=== PATIENT | male | born 1970 | race Caucasian/White ===

== ENCOUNTER → 2018-06-12 | Outpatient (CLI) | payer OTHER ==
[~2018-06-12] VITALS: Ht 177.8 cm; Wt 111.1 kg
[~2018-06-12] MED LIST: CEFUROXIME500 MG PO
--- NOTE | ~2018-06-12 | HPC ---
[facility] [address] [place] [address] PAIN MANAGEMENT CONSULTATION Name: PTATIE GAFFNEY Room #: REG OLIVIA CoatesMagen#: [id number] Admission: 06/12/18 Attend Phys: Christiano Nix MD Discharge: Date of : 72 Report #: [id number] THIS REPORT FOR: //name// CC: Noah Nix DATE OF SERVICE: 06/12/2018 CHIEF COMPLAINT: Chronic low back pain with radiation into the left posterior lateral aspect of the leg. The patient is a really nice 47-year-old gentleman. He has been dealing with back pain for about 3 years. He really pursued no treatment to this point. When he first noticed, it was intermittent. It has become a bit more common place and constant. He mentioned it to Dr. Mcwilliams, who recommended an MRI, which demonstrated an L5-S1 disk protrusion that correlated well with his radicular symptoms into the leg. For that reason, he was sent to us to discuss treatment options. He reports that he had back pain 8 or 12 years ago associated with back spasms, but no leg pain. It would come and go sometimes so bad that it would put him down, but it was never bad enough to seek treatment. The current pain in the left leg is intermittent, but tends to follow the same pattern, would be consistent with an intermittent radicular pain syndrome. He appears fit. He scores his pain as a 4-5/10. He has lost 45 pounds over the course of the last 6-9 months by working out at a gym boxing and also exercising regularly on his Peloton. These 2 forms of exercises have done him great job and although he is a stocky mikaela, he looks fit at this time. MEDICATIONS: None. ALLERGIES: None. PAST MEDICAL HISTORY: Hernia repair in 01/2016, septoplasty 05/2018. SOCIAL HISTORY: Denies tobacco. He drinks alcohol perhaps 1-2 in a month. He does not regularly use alcohol. 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 Impact pain score is a low 18. His pain is affecting his sleep at a level of 6/10 and walking at 3/10. Maximum score is 70. He is [id number] [id number] PAIN MANAGEMENT CONSULTATION Name: PATTIE GAFFNEY Room #: REG OLIVIA FlorezWade#: [id number] Admission: 06/12/18 Attend Phys: Christiano Nix MD Discharge: Date of : 72 Report #: [id number] REVIEW OF SYSTEMS: Essentially negative other than reported history of kidney stones. PHYSICAL EXAMINATION: GENERAL: Pleasant gentleman again stocky in appearance, but he appears fit. VITAL SIGNS: His blood pressure is 132/72, heart rate 71, respirations 16. He is 5 feet 10 inches, 245 pounds. BMI is now 35.2. CHEST: Clear. CARDIAC: Rhythm is regular. No audible murmur. ABDOMEN: Soft. MUSCULOSKELETAL: Examination of the spine reveals no tenderness. Good range of motion. Straight leg raising is performed in the sitting position and in the supine with mild radicular symptoms noted outside of the leg. Sensation is intact. Strength is normal. EXTREMITIES: Ankle jerk reflex on the left is perhaps slightly down in comparison to the right, knee is normal, 2+ bilateral. IMPRESSION: Low back pain with radiculopathy. Pain tends to follow primarily in L5 distribution. There may be some S1 component as well. The decrease in his ankle jerk reflex would correlate with an S1 radiculopathy. I reviewed the MRI with him and discussed an epidural injection. We would do it today; however, his insurance requires a preauthorization. Preauthorization will be sought. We will perform the injection at next available appointment. Risks, benefits were reviewed as well as long-term plan. See him back in 1 week. By: [id number] Christiano Nix MD /nt
[2018-06-12 13:52] VITALS: BP 132/72
== END | disposition home or self-care (01) ==
LOC: PAIN 08:16
DX: G89.29 Other chronic pain (principal); M51.27 Other intervertebral disc displacement, lumbosacral region; Z98.890 Other specified postprocedural states; Z87.442 Personal history of urinary calculi; Z79.899 Other long term (current) drug therapy

== ENCOUNTER → 2018-06-29 | Outpatient (CLI) | payer OTHER ==
[~2018-06-29] VITALS: Ht 177.8 cm; Wt 115.3 kg
--- NOTE | ~2018-06-29 | HPC ---
[facility] [place] [address] PAIN MANAGEMENT CONSULTATION Name: PATTIE GAFFNEY Room #: REG OLIVIA Gautam.#: [id number] Admission: 06/29/18 Attend Phys: Christiano Nix MD Discharge: Date of : 72 Report #: [id number] THIS REPORT FOR: //name// CC: Noah Nix DATE OF SERVICE: 06/29/2018 Followup visit for lumbar radiculopathy. I saw the patient on 06/12. He was scheduled for an epidural after we received preauthorization from his insurance company. That has been obtained and he is now here today for the injection discussed thoroughly at his last visit. I reviewed the procedure, risks and benefits. I reviewed his MRI scan, which demonstrates an L5-S1 disk protrusion correlating well with his L5-S1 symptoms on the left. Potential risks and benefits of the injection were described and he is anxious to proceed with the injection. IMPRESSION: Chronic low back pain with radiculopathy on the left in the L5-S1 distribution. PROCEDURE: Epidural steroid injection, left paramedian L5-S1. He was taken to the fluoroscopy suite and placed prone. Skin prepped with ChloraPrep. Skin anesthetized over the L5-S1 interspace. A 25-gauge needle was advanced easily into the epidural space in the first attempt using loss of resistance. There was no blood or CSF aspirated. 1 mL of Omnipaque injected demonstrating good spread of dye into the epidural space followed by 3 mL of 0.5% lidocaine mixed with 80 mg of triamcinolone. He tolerated the procedure well. He was observed for 45 minutes and was discharged. Follow up as needed. By: [id number] Christiano Nix MD /nt
[2018-06-29 14:26] VITALS: BP 118/83
== END | disposition home or self-care (01) ==
LOC: PAIN 07:17
DX: M54.16 Radiculopathy, lumbar region (principal); G89.29 Other chronic pain

== ENCOUNTER → 2019-01-01 | Outpatient (CLI) | payer OTHER ==
[~2019-01-01] VITALS: Ht 177.8 cm; Wt 121.1 kg
[~2019-01-01] MED LIST changes: +MOBIC15 MG PO
--- NOTE | ~2019-01-01 | HPC ---
[facility] [address] [place] [address] PAIN MANAGEMENT CONSULTATION Name: PATTIE GAFFNEY Room #: REG OLIVIA Florez.#: [id number] Admission: 01/01/19 ������������������ Attend Phys: Christiano Nix MD Discharge: ������������������ Date of : 72 Report #: [id number] THIS REPORT FOR: //name// CC: NIKHIL Nix DATE OF SERVICE: 01/01/2019 Followup visit for lumbar radiculopathy. The patient had an epidural last in July. He had great relief from that second shot. The first was in June. Pain was sustained over many months and is now returning. It is similar in nature in his low back and it radiates into his left leg. Pain goes as far as his knee. It has been ongoing since about 2014. Epidurals provided to the clinic to provide the best relief. Pain is still significant when he is riding or sitting for a long period of time. He can stand and walk without too much difficulty. Sneezing causes increased pressure throughout the lumbar spine and increases the radicular pain as well. MEDICATIONS: Meloxicam 50 mg daily. We discussed side effects of nonsteroidal anti-inflammatory drugs. PHYSICAL EXAMINATION: Blood pressure is 114/60, heart rate 67. He is 5 feet 10 inches, 267 pounds, BMI of 38.3. Contribution of weight to pain was discussed. He has pain across his low back and straight leg raising discomfort, which follows an L5-S1 distribution. X-rays reviewed. There is moderate left and [id number] right neural foraminal stenosis at L5-S1. Radiologist suggests this correlates with L5 radiculopathy and it is exactly what he has. RECOMMENDATION: Repeat epidural injection today, to continue with ongoing regular exercise. He is boxing 5 days a week. He remains very active and we talked about continuing to remain active both for weight management and also for core strengthening. PROCEDURE: We received preauthorization from his insurance company. He was taken to fluoroscopic suite after signing an informed consent. He was placed in prone position. Skin was prepped with ChloraPrep. Skin anesthetized over the L5-S1 interspace. A 20-gauge Tuohy epidural needle advanced on the left side of the epidural space using loss of resistance technique. There was no blood and [address] [address] PAIN MANAGEMENT CONSULTATION Name: PATTIE MAYER Room #: REG [facility] Gautam.#: [id number] Admission: 01/01/19 ������������������ Attend Phys: Christiano Nix MD Discharge: ������������������ Date of : 72 Report #: [id number] no CSF aspirated. A 1 mL of Omnipaque injected. Good spread of dye observed in the epidural space followed by 3 mL of 0.5% lidocaine mixed with 80 mg of triamcinolone. He tolerated the procedure well and was observed for 45 minutes and discharged. Followup visit is planned as needed for epidural injections in the future. No medications were ordered. ��������������������������������������������� ���������������������������������������� By: ��������������������������������������������� [id number] Christiano Nix MD /zenaida
[2019-01-01 14:08] VITALS: BP 114/60
--- NOTE | 2019-01-01 14:19 | NUR ---
Pain Clinic Assessment: 1. History of Osteoarthritis: DENIES History of Rheumatoid Arthritis: DENIES 2. Height: 5 ft. 10 in. 177.8 cm. Weight: 267.0 lb. oz. 121.111 kg. Patient's BMI: 38.3 3. Vital Signs: BP: 114/60 Pulse: 67 Resp: 16 Temp: 02 Sat: 97 ECG Mon: 4. Pain Intensity: 3 NOW 6 MAX 5. Fall Risk: Dizziness: N Needs help standing or walking: N Fallen in the last 3 months: N Fall risk comments: 6. Patient on Blood Thinner: None 7. History of Hypertension: N 8. Opioid Therapy greater than 6 weeks: N Opiate Contract Signed: 9. Risk Assessment Tool Provided: LOW 10. Functional Assessment Tool: 11. Recreational Drug Use: Never Drug Type: Tobacco Use: Never Smoker Tobacco Type: Amount or Packs/day: How Many Years: Alcohol Use: Yes Frequency: Monthly Quant:
== END | disposition home or self-care (01) ==
LOC: PAIN 06:53
DX: M54.16 Radiculopathy, lumbar region (principal); M48.061 Spinal stenosis, lumbar region without neurogenic claudication; M99.73 Connective tissue and disc stenosis of intervertebral foramina of lumbar region; Z79.899 Other long term (current) drug therapy

== ENCOUNTER → 2019-03-12 | Outpatient (CLI) | payer OTHER ==
[~2019-03-12] VITALS: Ht 177.8 cm; Wt 120.2 kg
--- NOTE | ~2019-03-12 | HPC ---
[facility] [place] [address] PAIN MANAGEMENT CONSULTATION Name: PATTIE GAFFNEY Room #: REG OLIVIA Gautam.#: [id number] Admission: 03/12/19 ������������������ Attend Phys: Christiano Nix MD Discharge: ������������������ Date of : 72 Report #: [id number] THIS REPORT FOR: //name// CC: Noah Nix DATE OF SERVICE: 03/12/2019 Followup visit for lumbar radiculopathy. The patient returns to the pain clinic today hopeful for an epidural injection. His last injection was performed in July. He had good response to that injection, with months of pain relief. Pain is now returning. MRI shows that he has [id number] right neural foraminal stenosis at L5-S1. This correlates well with left lumbar radicular pain syndrome. There have been no changes in his medication. He is not on a blood thinner. He takes only meloxicam. ALLERGIES: None. PAST MEDICAL HISTORY: Unremarkable. PHYSICAL EXAMINATION: GENERAL: Pleasant gentleman, moves easily from sitting position to standing position. He has mild antalgic features to his gait. VITAL SIGNS: Blood pressure 140/68, heart rate 77 and respirations 16. BMI is 38. MUSCULOSKELETAL: There is a left straight leg raising discomfort. This is consistent with radiculopathy. IMPRESSION: Lumbar radiculopathy. PLAN: Repeat epidural steroid injection under fluoroscopic guidance. DESCRIPTION OF PROCEDURE: He was taken to the fluoroscopic suite, placed prone and skin prepped with ChloraPrep. Skin anesthetized over the L4-L5 interspace. A 20-gauge Tuohy epidural needle advanced in the epidural space with loss of resistance. No blood or CSF aspirated. A 1 mL of Omnipaque injected and good spread of dye observed in the epidural space, followed by 3 mL of 0.5% lidocaine [facility] [address] [place] [address] PAIN MANAGEMENT CONSULTATION Name: PATTIE GAFFNEY Room #: REG CL JaxonSarah.#: [id number] Admission: 03/12/19 ������������������ Attend Phys: Christiano Nix MD Discharge: ������������������ Date of : 72 Report #: [id number] mixed with 80 mg triamcinolone. He tolerated the procedure well, was observed for 45 minutes and discharged. Follow up as needed. ��������������������������������������������� ���������������������������������������� By: ��������������������������������������������� [id number] Christiano Nix MD /nt
[2019-03-12 14:39] VITALS: BP 140/68
--- NOTE | 2019-03-12 14:51 | NUR ---
Pain Clinic Assessment: 1. History of Osteoarthritis: Not Applicable History of Rheumatoid Arthritis: Not Applicable 2. Height: 5 ft. 10 in. 177.8 cm. Weight: 265.0 lb. oz. 120.204 kg. Patient's BMI: 38.0 3. Vital Signs: BP: 140/68 Pulse: 77 Resp: 16 Temp: 02 Sat: 96 ECG Mon: 4. Pain Intensity: 4 5. Fall Risk: Dizziness: N Needs help standing or walking: N Fallen in the last 3 months: N Fall risk comments: \ 6. Patient on Blood Thinner: None 7. History of Hypertension: N 8. Opioid Therapy greater than 6 weeks: N Opiate Contract Signed: 9. Risk Assessment Tool Provided: LOW 10. Functional Assessment Tool: 11. Recreational Drug Use: Never Drug Type: Tobacco Use: Never Smoker Tobacco Type: Amount or Packs/day: How Many Years: Alcohol Use: No Frequency: Quant:
== END | disposition home or self-care (01) ==
LOC: PAIN 07:00
DX: M54.16 Radiculopathy, lumbar region (principal); G89.29 Other chronic pain; Z98.890 Other specified postprocedural states

== ENCOUNTER → 2019-06-18 | Outpatient (CLI) | payer OTHER ==
[~2019-06-18] VITALS: Ht 177.8 cm; Wt 115.7 kg
--- NOTE | ~2019-06-18 | HPC ---
[facility] [place] [address] PAIN MANAGEMENT CONSULTATION Name: PATTIE GAFFNEY Room #: REG OLIVIA FlorezWade#: [id number] Admission: 06/18/19 Attend Phys: Christiano Nix MD Discharge: Date of : 72 Report #: [id number] THIS REPORT FOR: //name// CC: Noah Nix DATE OF SERVICE: 06/18/2019 Followup visit for recurring low back pain with radiculopathy. The patient returns to pain clinic today in followup. He has had good response to prior epidural injections. He has recurring symptoms once again in the low back that radiates into the left leg. He has MRI evidence of impingement of the L5 nerve root. I performed injections for him at the L5-S1 level on 3 prior occasions. Because of the spread of the dye sometimes the epidural injection at that level, we will cover more of the sacral nerve roots, then the L5 nerve root, but he has had such favorable response to her in the past and I have agreed to repeat the injection for him today. We sought preauthorization. I reviewed his MRI, which again shows generalized disk bulging with mild canal stenosis at L5-S1 and facet arthropathy, which causes neural foraminal narrowing. PHYSICAL EXAMINATION: GENERAL: Pleasant, easy going gentleman. VITAL SIGNS: His blood pressure 124/78, heart rate 72, respirations 18. MUSCULOSKELETAL: He moves independently from sitting to standing position, ambulates with mild antalgic features. He has a positive straight leg raising discomfort on the right, which follows an L5-S1 distribution. He has outstanding lumbar range of motion in flexion, extension, rotational movements, likely due to his boxing. IMPRESION: Lumbar radiculopathy. RECOMMENDATION: Repeat epidural injection L5-S1. I ultimately repositioned the needle at L4-L5 due to what I felt was inadequate spread around the L5-S1 neural foramen from the dye. PROCEDURE: He was taken to fluoroscopic suite, placed prone, skin prepped with ChloraPrep. Skin was anesthetized initially over the L5-S1 interspace. I advanced a 20-gauge Tuohy epidural needle on the first attempt in the epidural space with loss of resistance technique. There was no blood and/or CSF aspirated. A 1 mL of Omnipaque was injected and spread of dye was deemed to be primarily caudad and I did not see spread continuing towards the L5-S1 neural foramen were intended to go. I withdrew the needle. The skin was then anesthetized at L4-L5 and advanced needle into the epidural space at that level. Needle was advanced with good loss of resistance. No blood or CSF aspirated. [address] [address] PAIN MANAGEMENT CONSULTATION Name: PATTIE GAFFNEY Room #: REG Sanjana Ovalle#: [id number] Admission: 06/18/19 Attend Phys: Christiano Nix MD Discharge: Date of : 72 Report #: [id number] A 1 mL of Omnipaque was injected demonstrating the hope for spread along the L5 nerve root. It was extended down along the L5-S1 neural foramen and along the pedicle into the neural foramen. I then injected 3 mL of 0.5% lidocaine mixed with 80 mg of triamcinolone. He tolerated the procedure well. There were no complications. He was taken to recovery room for observation and followup is planned on an as needed basis. No medications were ordered. By: 1800 0629 Christiano Nix MD /nt
[2019-06-18 14:47] VITALS: BP 124/78
--- NOTE | 2019-06-18 15:01 | NUR ---
Pain Clinic Assessment: 1. History of Osteoarthritis: Not Applicable History of Rheumatoid Arthritis: Not Applicable 2. Height: 5 ft. 10 in. 177.8 cm. Weight: 255.0 lb. oz. 115.668 kg. Patient's BMI: 36.6 3. Vital Signs: BP: 124/78 Pulse: 72 Resp: 18 Temp: 02 Sat: 98 ECG Mon: 4. Pain Intensity: 4 5. Fall Risk: Dizziness: N Needs help standing or walking: N Fallen in the last 3 months: N Fall risk comments: \ 6. Patient on Blood Thinner: None 7. History of Hypertension: N 8. Opioid Therapy greater than 6 weeks: N Opiate Contract Signed: 9. Risk Assessment Tool Provided: LOW 10. Functional Assessment Tool: 11. Recreational Drug Use: Never Drug Type: Tobacco Use: Never Smoker Tobacco Type: Amount or Packs/day: How Many Years: Alcohol Use: No Frequency: Quant:
== END | disposition home or self-care (01) ==
LOC: PAIN 06:58
DX: M47.27 Other spondylosis with radiculopathy, lumbosacral region (principal); M48.061 Spinal stenosis, lumbar region without neurogenic claudication; Z98.890 Other specified postprocedural states; G89.29 Other chronic pain

== ENCOUNTER → 2019-12-06 | Outpatient (CLI) | payer OTHER ==
[~2019-12-06] VITALS: Ht 177.8 cm; Wt 113.5 kg
--- NOTE | ~2019-12-06 | HPC ---
[facility] [place] [address] PAIN MANAGEMENT CONSULTATION Name: PATTIE GAFFNEY Room #: REG OLIVIA CoatesWadeTheodoreWade#: [id number] Admission: 12/06/19 Attend Phys: Christiano Nix MD Discharge: Date of : 72 Report #: [id number] THIS REPORT FOR: cc: Noah Mcwilliams II, MD, II,Noah Nix,Christiano Tom MD ~ CC: Noah Nix DATE OF SERVICE: 12/06/2019 Followup visit for lumbar radiculopathy. The patient is here in the pain clinic today and would like to consider another epidural injection. He has responded very nicely to these injections since his first injection in June of 2018. He has been able to avoid surgery. He continues to try and exercise, which he knows is important for improving his mobility and decrease in pain. At about 3-4 month interval following his injections, he however, develops pain of a limiting nature that is radicular. Pain is almost exclusively on the left and emanates from the L5-S1 level. We have an MRI that shows generalized disk bulging with mild central stenosis, but there is moderate ____ left stenosis, which correlates with left L5 radiculopathy. Medications were reviewed and reconciled and are unchanged. He does not want to take pain medications of any sort or other medications at this time. He continues to work. 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 Previous epidural injection provided 95% pain relief. Over the last 3 weeks, the pain now is returned to an intensity level of 8/10 with standing. PHYSICAL EXAMINATION: GENERAL: The patient moves independently from sitting to standing position, walks with antalgic features. He has pain with forward flexion and extension, tenderness across the lumbosacral segment. Positive straight leg raising is noted in the left leg in the L5-S1 distribution. IMPRESSION: Recurring L5-S1 radiculopathy. He would like to repeat the epidural injection. I have suggested today that we may transition to an L5-S1 transforaminal epidural injection given his unilateral symptoms. This can provide at times longer duration of response. His insurance will require a preauthorization at each visit. I would like to preauthorize him if possible for injection every 1-3 months as needed adhering [address] [address] PAIN MANAGEMENT CONSULTATION Name: PATTIE GAFFNEY Room #: REG [facility] Gautam.#: [id number] Admission: 12/06/19 Attend Phys: Christiano Nix MD Discharge: Date of : 72 Report #: [id number] to guidelines established by Medicare for epidural injections. Potential risks and benefits of the procedure, particularly in time of COVID restrictions were discussed. He would like to proceed. The pain limiting his activity significantly. We will try to see him back next week with preauthorization's approval. By: [id number] Christiano Nix MD /nt
[2019-12-06 14:31] VITALS: BP 116/75
--- NOTE | 2019-12-06 14:48 | NUR ---
Pain Clinic Assessment: 1. History of Osteoarthritis: Not Applicable History of Rheumatoid Arthritis: Not Applicable 2. Height: 5 ft. 10 in. 177.8 cm. Weight: 250.2 lb. oz. 113.490 kg. Patient's BMI: 35.9 3. Vital Signs: BP: 116/75 Pulse: 73 Resp: 14 Temp: 02 Sat: 97 ECG Mon: 4. Pain Intensity: 5 SIT 7-8 STAND 5. Fall Risk: Dizziness: N Needs help standing or walking: N Fallen in the last 3 months: N Fall risk comments: \ 6. Patient on Blood Thinner: None 7. History of Hypertension: N 8. Opioid Therapy greater than 6 weeks: N Opiate Contract Signed: 9. Risk Assessment Tool Provided: LOW 10. Functional Assessment Tool: 11. Recreational Drug Use: Never Drug Type: Tobacco Use: Never Smoker Tobacco Type: Amount or Packs/day: How Many Years: Alcohol Use: No Frequency: Quant:
== END ==
LOC: PAIN 11:05
DX: M54.17 Radiculopathy, lumbosacral region (principal); Z79.899 Other long term (current) drug therapy

== ENCOUNTER → 2019-12-17 | Outpatient (CLI) | payer OTHER ==
[~2019-12-17] VITALS: Ht 177.8 cm; Wt 114.1 kg
--- NOTE | ~2019-12-17 | HPC ---
[facility] [place] [address] PAIN MANAGEMENT CONSULTATION Name: PATTIE GAFFNEY Room #: REG OLIVIA FlorezWade#: [id number] Admission: 12/17/19 Attend Phys: Christiano Nix MD Discharge: Date of : 72 Report #: [id number] THIS REPORT FOR: cc: Noah Mcwilliams II, MD, II,Noah Nix,Christiano Tom MD ~ CC: Noah Nix DATE OF SERVICE: 12/17/2019 Followup visit for lumbar radiculopathy. The patient returns to clinic today for a left L5-S1 transforaminal epidural injection. I saw him less than 2 weeks ago, at which time he was evaluated for injections. We discussed the injection at that time and we were at that time holding off because of COVID restrictions and have agreed to proceed today. We have returned to performing some of our routine procedures. We discussed risks and benefits. He continues to have pain that radiates in the L5-S1 distribution. X-rays again are correlating well showing facet arthropathy and neural foraminal stenosis on the right at L5-S1. Previous injections were providing 90% pain relief. Prior dictation reviewed and reconciled with current symptoms, which are the same. IMPRESSION: L5-S1 radiculopathy on the left. PROCEDURE: Left L5-S1 transforaminal epidural injection under fluoroscopic guidance. DESCRIPTION OF PROCEDURE: He was taken to fluoroscopic suite, placed prone, skin prepped with ChloraPrep. Skin anesthetized over the L5-S1 neural foramen on the left. Triplanar fluoroscopic views guided needle into the neural foramen. A 0.25 mL of Omnipaque demonstrated an excellent epidurogram. This was followed by 3 mL of 0.5% lidocaine mixed with 60 mg of triamcinolone. He tolerated the procedure well. Pain was 0 at discharge. Follow up as needed. No medications ordered today. By: [id number] [id number] Christiano Nix MD /nt
[2019-12-17 11:19] VITALS: BP 123/84
--- NOTE | 2019-12-17 11:30 | NUR ---
Pain Clinic Assessment: 1. History of Osteoarthritis: spine History of Rheumatoid Arthritis: Not Applicable 2. Height: 5 ft. 10 in. 177.8 cm. Weight: 251.6 lb. oz. 114.125 kg. Patient's BMI: 36.1 3. Vital Signs: BP: 123/84 Pulse: 70 Resp: 18 Temp: 02 Sat: 100 ECG Mon: 4. Pain Intensity: 5-6 5. Fall Risk: Dizziness: N Needs help standing or walking: N Fallen in the last 3 months: N Fall risk comments: \ 6. Patient on Blood Thinner: None 7. History of Hypertension: N 8. Opioid Therapy greater than 6 weeks: N Opiate Contract Signed: 9. Risk Assessment Tool Provided: 3-LOW RISK 10. Functional Assessment Tool: 11. Recreational Drug Use: Never Drug Type: Tobacco Use: Never Smoker Tobacco Type: Amount or Packs/day: How Many Years: Alcohol Use: No Frequency: Quant:
== END | disposition home or self-care (01) ==
LOC: PAIN 11:07
DX: M54.16 Radiculopathy, lumbar region (principal); G89.29 Other chronic pain; Z98.890 Other specified postprocedural states

== ENCOUNTER → 2020-04-17 | Outpatient (CLI) | payer OTHER ==
[~2020-04-17] VITALS: Ht 177.8 cm; Wt 115.5 kg
--- NOTE | ~2020-04-17 | HPC ---
[facility] [place] [address] PAIN MANAGEMENT CONSULTATION Name: PATTIE GAFFNEY Room #: REG OLIVIA FlorezWade#: [id number] Admission: 04/17/20 Attend Phys: Christiano Nix MD Discharge: Date of : 72 Report #: [id number] THIS REPORT FOR: cc: Nikhil Mcwilliams II, MD, II,Nikhil Nix,Christiano Tom MD ~ CC: NIKHIL Nix DATE OF SERVICE: 04/17/2020 The patient returns to clinic today to discuss repeat injections. He has responded favorably to lumbar epidural injections at L5-S1 at last visit. Pain is exclusively on the left. I chose to inject him using a transforaminal approach. That was on 12/17/2019. He did not receive as much improvement from that injection as he has from his midline injections and would like to repeat the midline injection. After injection, he is much more active. He is very fit 49-year-old at least by report. You would not know it by looking at him, that he likes to kick box and exercises religiously every day. Given his BMI of 36. Activity level is atypical. He complains today of pain of a 4, but it can be as high as an 8-9/10. Pain is in the left lumbosacral region radiating into the left leg following an L5-S1 distribution. It has always been severe on the left, but he also has some symptoms on the right, we reviewed his x-rays. 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 There is also noted central canal stenosis, which may be contributing. He has certainly responded better to midline epidural injections. PHYSICAL EXAMINATION: GENERAL: He is an affable outgoing 49-year-old. VITAL SIGNS: Blood pressure 130/82, heart rate 87, respirations 20, O2 sat 97. He is 5 feet 10 inches, 254 pounds with a BMI of 36.5. He can move independently from sitting to standing position. Gait is only mildly antalgic. MUSCULOSKELETAL: Reveals tenderness across the lumbosacral segment. Mild straight leg raising pain on the left. There is no focal weakness or numbness. No numbness or tingling. Strength is excellent. IMPRESSION: L5-S1 radiculopathy on the left. PLAN: We will repeat the injection using midline approach. Left paramedian has been the best location for him and that is where I intend to inject him once we receive preauthorization from his insurance company. [place] [address] PAIN MANAGEMENT CONSULTATION Name: PATTIE GAFFNEY Room #: REG [facility] Vasquez#: [id number] Admission: 04/17/20 Attend Phys: Christiano Nix MD Discharge: Date of : 72 Report #: [id number] active. He had some questions today about rowing as exercise. I felt that he might benefit from seeing a physical therapist and I have referred him to [facility] on [address] close to his home. I have contacted their office to make sure they have a rowing machine there and they can talk about proper mechanics to make sure that he does not aggravate his condition. A followup visit is planned for an epidural injection sometime in the next week. By: [id number] Christiano Nix MD /nt
[2020-04-17 14:02] VITALS: BP 130/82
--- NOTE | 2020-04-17 14:09 | NUR ---
Pain Clinic Assessment: 1. History of Osteoarthritis: spine History of Rheumatoid Arthritis: Not Applicable 2. Height: 5 ft. 10 in. 177.8 cm. Weight: 254.6 lb. oz. 115.486 kg. Patient's BMI: 36.5 3. Vital Signs: BP: 130/82 Pulse: 87 Resp: 20 Temp: 02 Sat: 97 ECG Mon: 4. Pain Intensity: 4; 8-9 AT WORST 5. Fall Risk: Dizziness: N Needs help standing or walking: N Fallen in the last 3 months: N Fall risk comments: \ 6. Patient on Blood Thinner: None 7. History of Hypertension: N 8. Opioid Therapy greater than 6 weeks: N Opiate Contract Signed: 9. Risk Assessment Tool Provided: 3-LOW RISK 10. Functional Assessment Tool: 11. Recreational Drug Use: Never Drug Type: Tobacco Use: Never Smoker Tobacco Type: Amount or Packs/day: How Many Years: Alcohol Use: No Frequency: Quant:
== END ==
LOC: PAIN 03-27 14:28
PROVIDERS: ATTEND Anesthesiology Pain Medicine
DX: M54.17 Radiculopathy, lumbosacral region (principal)

== ENCOUNTER → 2020-05-08 | Outpatient (CLI) | payer OTHER ==
[~2020-05-08] VITALS: Ht 177.8 cm; Wt 114.3 kg
--- NOTE | ~2020-05-08 | HPC ---
[facility] [place] [address] PAIN MANAGEMENT CONSULTATION Name: PATTIE GAFFNEY Room #: REG OLIVIA FlorezWade#: [id number] Admission: 05/08/20 Attend Phys: Christiano Nix MD Discharge: Date of : 72 Report #: [id number] THIS REPORT FOR: cc: Noah Mcwilliams II, MD, II,Noah Nix,Christiano Tom MD ~ CC: Noah Nix DATE OF SERVICE: 05/08/2020 Followup visit for lumbar epidural injection. The patient was seen on 04/17/2020. We were unable to perform the injection that day due to preauthorization requirements. He continues to have pain that radiates in the L5-S1 distribution on the left. He had a transforaminal injection that was not helpful and we are bringing him back today to repeat the L5-S1 left paramedian translaminar injection. Reviewed the procedure with him again and potential risks and benefits. He is anxious to proceed. There have been no significant changes since his visit here just 2 weeks ago. PHYSICAL EXAMINATION: Today, his vital signs are fine. Blood pressure 130/82, heart rate 87, respirations 20, O2 sat 97, 5 feet 10 inches, and BMI 36.5. Mild antalgic features to his gait. Tenderness and straight leg raising discomfort on the left, mostly in the hip. IMPRESSION: L5-S1 radiculopathy on the left. PROCEDURE: L5-S1 epidural injection under fluoroscopic guidance. PROCEDURE NOTE: After both written and informed consent to include risk of spinal cord damage, increased pain, weakness and dural puncture, the patient was taken to the fluoroscopy suite, placed in the prone position. After sterile prep and drape, a skin wheal with lidocaine was raised. A 22-gauge epidural Tuohy needle was inserted in the midline at L5-S1 left paramedian with good loss to resistance. Negative aspiration for cerebrospinal fluid or blood was noted. Then 1 mL of Omnipaque under biplanar fluoroscopy showed good spread within the epidural space. This was followed with 80 mg of triamcinolone ____ 0.5 mL Lidocaine was then injected to flush the needle; it was removed. He tolerated the procedure well, no complications and was taken to Recovery Room for observation. By: [id number] Christiano Nix MD /nt
[2020-05-08 14:12] VITALS: BP 129/81
--- NOTE | 2020-05-08 14:23 | NUR ---
Pain Clinic Assessment: 1. History of Osteoarthritis: spine History of Rheumatoid Arthritis: Not Applicable 2. Height: 5 ft. 10 in. 177.8 cm. Weight: 252.0 lb. oz. 114.307 kg. Patient's BMI: 36.2 3. Vital Signs: BP: 129/81 Pulse: 86 Resp: 16 Temp: 02 Sat: 97 ECG Mon: 4. Pain Intensity: 2-3 5. Fall Risk: Dizziness: N Needs help standing or walking: N Fallen in the last 3 months: N Fall risk comments: \ 6. Patient on Blood Thinner: None 7. History of Hypertension: N 8. Opioid Therapy greater than 6 weeks: N Opiate Contract Signed: 9. Risk Assessment Tool Provided: 3-LOW RISK 10. Functional Assessment Tool: 11. Recreational Drug Use: Never Drug Type: Tobacco Use: Never Smoker Tobacco Type: Amount or Packs/day: How Many Years: Alcohol Use: No Frequency: Quant:
== END | disposition home or self-care (01) ==
LOC: PAIN 06:58
PROVIDERS: ATTEND Anesthesiology Pain Medicine
DX: M54.16 Radiculopathy, lumbar region (principal); G89.29 Other chronic pain; Z98.890 Other specified postprocedural states; Z79.899 Other long term (current) drug therapy

== ENCOUNTER → 2021-04-02 | Outpatient (CLI) | payer BC, OTHER ==
[~2021-04-02] VITALS: Ht 177.8 cm; Wt 119.8 kg
[2021-04-02 14:50] VITALS: BP 131/85
--- NOTE | 2021-04-02 15:12 | NUR ---
Pain Clinic Assessment: 1. History of Osteoarthritis: spine History of Rheumatoid Arthritis: Not Applicable 2. Height: 5 ft. 10 in. 177.8 cm. Weight: 264.0 lb. oz. 119.750 kg. Patient's BMI: 37.9 3. Vital Signs: BP: 131/85 Pulse: 73 Resp: 16 Temp: 02 Sat: 98 ECG Mon: 4. Pain Intensity: 4-5 5. Fall Risk: Dizziness: N Needs help standing or walking: N Fallen in the last 3 months: N Fall risk comments: \ 6. Patient on Blood Thinner: None 7. History of Hypertension: N 8. Opioid Therapy greater than 6 weeks: N Opiate Contract Signed: 9. Risk Assessment Tool Provided: 3-LOW RISK 10. Functional Assessment Tool: 11. Recreational Drug Use: Never Drug Type: Tobacco Use: Never Smoker Tobacco Type: Amount or Packs/day: How Many Years: Alcohol Use: No Frequency: Quant:
== END ==
LOC: PAIN 13:41
PROVIDERS: ATTEND Anesthesiology Pain Medicine
DX: M47.27 Other spondylosis with radiculopathy, lumbosacral region (principal); M48.07 Spinal stenosis, lumbosacral region

== ENCOUNTER → 2021-04-09 | Outpatient (CLI) | payer BC, OTHER ==
[~2021-04-09] VITALS: Ht 177.8 cm; Wt 120.4 kg
[2021-04-09 10:34] VITALS: BP 118/80
--- NOTE | 2021-04-09 10:39 | NUR ---
Pain Clinic Assessment: 1. History of Osteoarthritis: spine History of Rheumatoid Arthritis: Not Applicable 2. Height: 5 ft. 10 in. 177.8 cm. Weight: 265.4 lb. oz. 120.385 kg. Patient's BMI: 38.1 3. Vital Signs: BP: 118/80 Pulse: 71 Resp: 16 Temp: 02 Sat: 100 ECG Mon: 4. Pain Intensity: 4 5. Fall Risk: Dizziness: N Needs help standing or walking: N Fallen in the last 3 months: N Fall risk comments: \ 6. Patient on Blood Thinner: None 7. History of Hypertension: N 8. Opioid Therapy greater than 6 weeks: N Opiate Contract Signed: 9. Risk Assessment Tool Provided: 3-LOW RISK 10. Functional Assessment Tool: 11. Recreational Drug Use: Never Drug Type: Tobacco Use: Never Smoker Tobacco Type: Amount or Packs/day: How Many Years: Alcohol Use: No Frequency: Quant:
== END | disposition home or self-care (01) ==
LOC: PAIN 06:54
PROVIDERS: ATTEND Anesthesiology Pain Medicine
DX: M54.16 Radiculopathy, lumbar region (principal); M48.061 Spinal stenosis, lumbar region without neurogenic claudication; G89.29 Other chronic pain; Z98.890 Other specified postprocedural states